=== PATIENT | female | born 1990 | race Caucasian/White ===

== ENCOUNTER 2019-04-15 18:04 | Emergency (ER) | payer OTHER ==
[2019-04-15 18:23] VITALS: TEMP 98.8
[2019-04-15 19:09] LABS: Basophils % (A) 1 %; Eosinophils # (A) 0.1 k/uL (0-0.7); Eosinophils % (A) 1 %; Lymphocytes # (A) 2.3 k/uL (1.0-4.8); Lymphocytes % (A) 30 %; MCHC 33.4 g/dL (31.0-37.0); MCV 89.8 fL (80.0-100.0); Mean Platelet Volume 7.3; Monocytes # (A) 0.4 k/uL (0-1.0); Monocytes % (A) 5 %; Neutrophils # (A) 4.7 k/uL (1.3-7.7); Neutrophils % (A) 61 %; Platelet Count 258 k/uL (150-450); RBC 4.34 m/uL (3.80-5.40); RDW 12.4 % (11.5-15.5); WBC 7.7 k/uL (3.8-10.6)
[2019-04-15 19:16] LABS: Appearance,Urine Clear (Clear); Bilirubin,Urine Negative (Negative); Blood,Urine Large (Negative); Color,Urine Light Yellow; Glucose,Urine (UA) Negative (Negative); Ketones,Urine Negative (Negative); Leukocyte Esterase,Urine Negative (Negative); Nitrite,Urine Negative (Negative); Protein,Urine Negative (Negative); RBC,Urine 1 /hpf (0-5); Specific Gravity,Urine 1.006 (1.001-1.035); Squamous Epithelial Cell,Urine 1 /hpf (0-4); Urobilinogen,Urine <2.0 mg/dL (<2.0); WBC,Urine 1 /hpf (0-5)
[2019-04-15 19:33] LABS: ALT 21 U/L (9-52); AST 22 U/L (14-36); African American GFR (CKD) >90 (>60 ml/min/1.73 sqM); Albumin 4.2 g/dL (3.5-5.0); Alkaline Phosphatase 56 U/L (38-126); Anion Gap 10 mmol/L; Blood Urea Nitrogen 14 mg/dL (7-17); Calcium 9.3 mg/dL (8.4-10.2); Carbon Dioxide 22 mmol/L (22-30); Chloride 108 mmol/L (98-107); Glucose 88 mg/dL (74-99); Sodium 140 mmol/L (137-145); Total Bilirubin 0.2 mg/dL (0.2-1.3); Total Protein 7.2 g/dL (6.3-8.2)
[2019-04-15 19:49] LABS: HCG,Quantitative Serum 12.3 mIU/mL
[2019-04-15 20:25] VITALS: BP 131/85; PULSE 87; RESP 18
--- NOTE | 2019-04-15 20:42 | US ---
EXAMINATION TYPE: OB < 14 wks transvag DATE OF EXAM: 04/15/2019 8:06 PM COMPARISON: NONE CLINICAL HISTORY: pain. Pain and bleeding x 1 day. . EXAM PERFORMED: Transvaginal (TV) and Transabdominal (TA) EXAM MEASUREMENTS: GESTATIONAL AGE / DATING Physician Established: Not yet established Dates by LMP: (4 weeks/1 day) EDC: 12/22/2019 Dates by First Scan: This is first scan Dates by Current Scan for: No gestational sac seen MATERNAL ANATOMY Uterus: Endo: 0.83 cm. No gestational sac seen at this time. Right Ovary: 3.6 x 2.3 x 2.2 cm. Anechoic areas seen. Largest: 0.7 x 0.8 x 1.0 cm. Left Ovary: 3.5 x 1.9 x 2.1 cm. Anechoic areas seen. Area of mixed echogenicity and peripheral vascularity seen measurin.5 x 1.8 x 1.4 cm. Post CDS / Adnexa: appear wnl Presence of free fluid: not seen Presence of corpus luteal cyst: Area of mixed echogenicity and peripheral vascularity seen left ovary measurin.5 x 1.8 x 1.4 cm. GESTATION / SURVEY IUP: No IUP seen at this time Date of LMP: 03/17/2019 Beta HcG (if available): Not detected IMPRESSION: 1. No gestational sac is identified. There is a mixed 1.8 cm structure within the left ovary which is indeterminate. May represent a corpus luteal cyst. Other etiologies including ectopic not excluded. Differential diagnosis would include normal too early to detect. Ectopic or missed also and the differential diagnosis. Correlate with beta hCG and serial ultrasound as clinically warranted. If there is a negative beta-hCG then consider hemorrhagic cyst or endometrioma. MTDD
--- NOTE | 2019-04-15 21:47 | ED ---
Female Urogenital HPI - General Chief complaint: Vaginal Bleeding Stated complaint: Vaginal Bleeding early Time Seen by Provider: 04/15/19 18:28 Source: patient Mode of arrival: ambulatory Limitations: no limitations - History of Present Illness Initial comments: 28-year-old female presents today for chief complaint of vaginal bleeding in . . Patient said her first positive test on Sunday. Patient discontinued control and one prior has not had a period since. Patient states she began bleeding around 11:30 this morning. She states has been progressively increasing. She states it began light. Patient states she feels like she has period cramping. Patient denies severe pain denies unilateral pain. Patient denies vomiting nausea, emesis melena hematochezia or diarrhea. Denies fevers. Denies vaginal discharge. Remaining review of system negative. Upon arrival patient appears well vital signs within acceptable limits. No signs of acute distress. - Related Data Home Medications Medication Instructions Recorded Confirmed Rtd-Rkhq-Enols Acid 1 cap PO DAILY 04/15/19 04/15/19 [-U Capsule (formulary)] Allergies Allergy/AdvReac Type Severity Reaction Status Date / Time No Known Allergies Allergy Unverified 04/15/19 19:01 Review of Systems ROS Statement: Those systems with pertinent positive or pertinent negative responses have been documented in the HPI. ROS Other: All systems not noted in ROS Statement are negative. Past Medical History Past Medical History: No Reported History History of Any Multi-Drug Resistant Organisms: None Reported Past Surgical History: No Surgical Hx Reported Past Psychological History: No Psychological Hx Reported Smoking Status: Never smoker Past Alcohol Use History: None Reported Past Drug Use History: None Reported General Exam - General Exam Comments Initial Comments: General: The patient is awake and alert, in no distress, and does not appear acutely ill. Eye: +3 mm pupils are equal, round and reactive to light, extra-ocular movements are intact. No nystagmus. There is normal conjunctiva bilaterally. No signs of icterus. Ears, nose, mouth and throat: There are moist mucous membranes and no oral lesions. Neck: The neck is supple, there is no tenderness or JVD. Cardiovascular: There is a regular rate and rhythm. No murmur, rub or gallop is appreciated. Respiratory: Lungs are clear to auscultation, respirations are non-labored, breath sounds are equal. No wheezes, stridor, rales, or rhonchi. Gastrointestinal: Soft, non-distended, non-tender abdomen without masses or organomegaly noted. There is no rebound or guarding present. No CVA tenderness. Bowel sounds are unremarkable. Pevlic: no adnexal tenderness, no cervical motion, os open, blood in vault, no heavy bleeding. no external lesions Musculoskeletal: Normal ROM, no tenderness. Strength 5/5. Sensation intact. Pulses equal bilaterally 2+. Neurological: A&O x 3. CN II-XII intact, There are no obvious motor or sensory deficits. Coordination appears grossly intact. Speech is normal. Skin: Skin is warm and dry and no rashes or lesions are noted. Psychiatric: Cooperative, appropriate mood & affect, normal judgment. Limitations: no limitations Course Vital Signs 04/15/19 04/15/19 04/15/19 18:19 20:25 22:38 Temperature 98.8 F 98.8 F Pulse Rate 78 87 87 Respiratory 16 18 18 Rate Blood Pressure 134/83 131/85 131/85 O2 Sat by Pulse 98 97 97 Oximetry Medical Decision Making - Medical Decision Making 28-year-old female presented today for chief complaint of vaginal bleeding and . First test was positive on Sunday. Patient discontinued control less than a month prior. Patient states she has crampy pain and moderate bleeding less than that of a period. Patient denies unilateral pain. No appreciable adnexal tenderness. Eyes open. Clinical on pelvic examination. Ultrasound revealed no evidence of IUP. There was a lesion of the left ovary noted. Most likely ddx given the appearance is corpus luteum cyst however cannot rule out ectopic. I feel this is clinically miscarriage in early given the patients hcg of 12. A+ blood type. Patient has no severe pain. VS stable. Evaluated in person by Dr. Torres (delay in evaluation due to code, once return patient promptly evaluated by attending). Patient stated she did not want to stay for OBGYN consultation. She states she has f/u on Sunday. Dr. Torres recommended f/u within 48 hours. Patient discharge appearing well. No changes in pain, amount of bleeding. - Lab Data Result diagrams: 04/15/19 18:50 04/15/19 18:50 Lab Results 07/30/19 07/30/19 07/30/19 Range/Units 18:50 18:50 18:50 WBC (3.8-10.6) k/uL RBC (3.80-5.40) m/uL Hgb (11.4-16.0) gm/dL Hct (34.0-46.0) % MCV (80.0-100.0) fL MCH (25.0-35.0) pg MCHC (31.0-37.0) g/dL RDW (11.5-15.5) % Plt Count (150-450) k/uL Neutrophils % % Lymphocytes % % Monocytes % % Eosinophils % % Basophils % % Neutrophils # (1.3-7.7) k/uL Lymphocytes # (1.0-4.8) k/uL Monocytes # (0-1.0) k/uL Eosinophils # (0-0.7) k/uL Basophils # (0-0.2) k/uL Sodium 140 (137-145) mmol/L Potassium 4.0 (3.5-5.1) mmol/L Chloride 108 H (98-107) mmol/L Carbon Dioxide 22 (22-30) mmol/L Anion Gap 10 mmol/L BUN 14 (7-17) mg/dL Creatinine 0.80 (0.52-1.04) mg/dL Est GFR (CKD-EPI)AfAm >90 (>60 ml/min/1.73 sqM) Est GFR (CKD-EPI)NonAf >90 (>60 ml/min/1.73 sqM) Glucose 88 (74-99) mg/dL Calcium 9.3 (8.4-10.2) mg/dL Total Bilirubin 0.2 (0.2-1.3) mg/dL AST 22 (14-36) U/L ALT 21 (9-52) U/L Alkaline Phosphatase 56 (38-126) U/L Total Protein 7.2 (6.3-8.2) g/dL Albumin 4.2 (3.5-5.0) g/dL HCG, Quant 12.3 mIU/mL Urine Color Light Yellow Urine Appearance Clear (Clear) Urine pH 5.0 (5.0-8.0) Ur Specific [place] 1.006 (1.001-1.035) Urine Protein Negative (Negative) Urine Glucose (UA) Negative (Negative) Urine Ketones Negative (Negative) Urine Blood Large H (Negative) Urine Nitrite Negative (Negative) Urine Bilirubin Negative (Negative) Urine Urobilinogen <2.0 (<2.0) mg/dL Ur Leukocyte Esterase Negative (Negative) Urine RBC 1 (0-5) /hpf Urine WBC 1 (0-5) /hpf Ur Squamous Epith Cells 1 (0-4) /hpf Urine HCG, Qual Not Detected (Not Detectd) Trichomonas Ag (Rapid) (Negative) Blood Type Blood Type Confirm Blood Type Recheck Antibody Screen Spec Expiration Date 04/15/19 04/15/19 04/15/19 Range/Units 18:50 18:50 18:55 WBC 7.7 (3.8-10.6) k/uL RBC 4.34 (3.80-5.40) m/uL Hgb 13.0 (11.4-16.0) gm/dL Hct 39.0 (34.0-46.0) % MCV 89.8 (80.0-100.0) fL MCH 30.0 (25.0-35.0) pg MCHC 33.4 (31.0-37.0) g/dL RDW 12.4 (11.5-15.5) % Plt Count 258 (150-450) k/uL Neutrophils % 61 % Lymphocytes % 30 % Monocytes % 5 % Eosinophils % 1 % Basophils % 1 % Neutrophils # 4.7 (1.3-7.7) k/uL Lymphocytes # 2.3 (1.0-4.8) k/uL Monocytes # 0.4 (0-1.0) k/uL Eosinophils # 0.1 (0-0.7) k/uL Basophils # 0.0 (0-0.2) k/uL Sodium (137-145) mmol/L Potassium (3.5-5.1) mmol/L Chloride (98-107) mmol/L Carbon Dioxide (22-30) mmol/L Anion Gap mmol/L BUN (7-17) mg/dL Creatinine (0.52-1.04) mg/dL Est GFR (CKD-EPI)AfAm (>60 ml/min/1.73 sqM) Est GFR (CKD-EPI)NonAf (>60 ml/min/1.73 sqM) Glucose (74-99) mg/dL Calcium (8.4-10.2) mg/dL Total Bilirubin (0.2-1.3) mg/dL AST (14-36) U/L ALT (9-52) U/L Alkaline Phosphatase (38-126) U/L Total Protein (6.3-8.2) g/dL Albumin (3.5-5.0) g/dL HCG, Quant mIU/mL Urine Color Urine Appearance (Clear) Urine pH (5.0-8.0) Ur Specific [place] (1.001-1.035) Urine Protein (Negative) Urine Glucose (UA) (Negative) Urine Ketones (Negative) Urine Blood (Negative) Urine Nitrite (Negative) Urine Bilirubin (Negative) Urine Urobilinogen (<2.0) mg/dL Ur Leukocyte Esterase (Negative) Urine RBC (0-5) /hpf Urine WBC (0-5) /hpf Ur Squamous Epith Cells (0-4) /hpf Urine HCG, Qual (Not Detectd) Trichomonas Ag (Rapid) (Negative) Blood Type A Positive Blood Type Confirm A Positive Blood Type Recheck CABO Indicated Antibody Screen NEGATIVE Spec Expiration Date 04/18/2019 - 234904/15/19 Range/Units Unknown WBC (3.8-10.6) k/uL RBC (3.80-5.40) m/uL Hgb (11.4-16.0) gm/dL Hct (34.0-46.0) % MCV (80.0-100.0) fL MCH (25.0-35.0) pg MCHC (31.0-37.0) g/dL RDW (11.5-15.5) % Plt Count (150-450) k/uL Neutrophils % % Lymphocytes % % Monocytes % % Eosinophils % % Basophils % % Neutrophils # (1.3-7.7) k/uL Lymphocytes # (1.0-4.8) k/uL Monocytes # (0-1.0) k/uL Eosinophils # (0-0.7) k/uL Basophils # (0-0.2) k/uL Sodium (137-145) mmol/L Potassium (3.5-5.1) mmol/L Chloride (98-107) mmol/L Carbon Dioxide (22-30) mmol/L Anion Gap mmol/L BUN (7-17) mg/dL Creatinine (0.52-1.04) mg/dL Est GFR (CKD-EPI)AfAm (>60 ml/min/1.73 sqM) Est GFR (CKD-EPI)NonAf (>60 ml/min/1.73 sqM) Glucose (74-99) mg/dL Calcium (8.4-10.2) mg/dL Total Bilirubin (0.2-1.3) mg/dL AST (14-36) U/L ALT (9-52) U/L Alkaline Phosphatase (38-126) U/L Total Protein (6.3-8.2) g/dL Albumin (3.5-5.0) g/dL HCG, Quant mIU/mL Urine Color Urine Appearance (Clear) Urine pH (5.0-8.0) Ur Specific [place] (1.001-1.035) Urine Protein (Negative) Urine Glucose (UA) (Negative) Urine Ketones (Negative) Urine Blood (Negative) Urine Nitrite (Negative) Urine Bilirubin (Negative) Urine Urobilinogen (<2.0) mg/dL Ur Leukocyte Esterase (Negative) Urine RBC (0-5) /hpf Urine WBC (0-5) /hpf Ur Squamous Epith Cells (0-4) /hpf Urine HCG, Qual (Not Detectd) Trichomonas Ag (Rapid) Negative (Negative) Blood Type Blood Type Confirm Blood Type Recheck Antibody Screen Spec Expiration Date Disposition Clinical Impression: Miscarriage, Vaginal bleeding before 22 weeks gestation Disposition: HOME SELF-CARE Condition: Good Instructions (If sedation given, give patient instructions): Miscarriage (ED) Additional Instructions: Please use medication as discussed. Please follow-up with Dr. Yanez in 48 hours. Please return to emergency room if the symptoms increase or worsen or for any other concerns. Is patient prescribed a controlled substance at d/c from ED?: No Referrals: None,Stated [Primary Care Provider] - 1-2 days Darryn Yanez DO [REFERRING] - 1-2 days Time of Disposition: 22:26
[2019-04-16 16:15] LABS: N. gonorrhoeae,PCR Negative (Neg,Equiv); Neisseria Source Urine
[2019-04-16 16:21] LABS: C. trachomatis,PCR Negative (Neg,Equiv); Chlamydia trachomatis Source Urine
== END 2019-04-15 22:41 | disposition home or self-care (01) ==
LOC: EC 18:04
DX: O03.9 Complete or unspecified spontaneous abortion without complication (principal); O99.89 Other specified diseases and conditions complicating pregnancy, childbirth and the puerperium; N83.9 Noninflammatory disorder of ovary, fallopian tube and broad ligament, unspecified; Z3A.00 Weeks of gestation of pregnancy not specified
CPT/HCPCS: 36415; 76801; 80053; 81001; 81025; 84702; 85025; 86850; 86900; 86901; 87070; 87205; 87491; 87591; 87808; 99284

== ENCOUNTER 2024-09-26 03:52 | Emergency (ER) | payer OTHER ==
[2024-09-26 03:56] VITALS: TEMP 98
--- NOTE | 2024-09-26 04:22 | ED ---
General Adult HPI - General Chief complaint: Abdominal Pain Stated complaint: Abd pain Time Seen by Provider: 09/26/24 04:10 Source: patient, RN notes reviewed, old records reviewed Mode of arrival: ambulatory - History of Present Illness Initial comments: Is a 33-year-old female who presents emergency department complaining of "gallbladder attack." States she has had numerous episodes of these in the past. Has been told she has gallbladder issues. They have been more frequent over the last year. States she has mid epigastric and right upper quadrant pain that radiates towards the back. Endorses nausea without any episodes of emesis. Symptoms started last night. Denies any chest pain, shortness of breath. Denies any fevers. Has a mild cough at this time. Denies any urinary complaints. States she is not . Presents for further evaluation. Denies diarrhea or constipation. - Related Data Home Medications Medication Instructions Recorded Confirmed Ayj-Bqkm-Bgftq Acid 1 cap PO DAILY 04/15/19 04/15/19 [-U Capsule (formulary)] Allergies Allergy/AdvReac Type Severity Reaction Status Date / Time No Known Allergies Allergy Verified 09/26/24 03:56 Review of Systems ROS Statement: Those systems with pertinent positive or pertinent negative responses have been documented in the HPI. Review of Systems: CONST: Denies fever EYES: Denies blurry vision ENT: Denies nasal congestion C/V: Denies Chest pain RESP: Denies shortness of breath GI: Endorses abdominal pain : Denies dysuria SKIN: Denies rash. MSK: Denies joint pain. NEURO: Denies headache ROS Other: All systems not noted in ROS Statement are negative. Past Medical History Past Medical History: No Reported History History of Any Multi-Drug Resistant Organisms: None Reported Past Surgical History: No Surgical Hx Reported Past Psychological History: No Psychological Hx Reported Smoking Status: Never smoker Past Alcohol Use History: None Reported Past Drug Use History: None Reported General Exam - General Exam Comments Initial Comments: General: Appears in mild distress secondary to abdominal discomfort. HEAD: Normal with no signs of head trauma. EYES: EOMI ENT: Hearing grossly intact, normal oropharynx. RESPIRATORY: Clear breath sounds bilaterally. No wheezes, rales, or rhonchi. C/V: Regular rate and rhythm. S1 and S2 auscultated, no edema, peripheral pulses 2+ and intact throughout ABD: Abdomen is soft, nondistended. Tender to palpation epigastric, right upper quadrant. No guarding or rebound tenderness. No peritoneal signs. EXT: Normal range of motion, no obvious deformity SKIN: No rashes or lesions observed on exposed skin. NEURO: Alert and oriented x 4. Course Vital Signs 09/26/24 09/26/24 03:53 06:53 Temperature 98 F Pulse Rate 81 79 Respiratory 18 16 Rate Blood Pressure 145/96 130/85 O2 Sat by Pulse 100 97 Oximetry Medical Decision Making - Medical Decision Making Was pt. sent in by a medical professional or institution (, PA, ASSISTANT FINANCIAL ACCOUNTANT, urgent care, hospital, or residential...) When possible be specific @ -No Did you speak to anyone other than the patient for history (EMS, parent, family, police, friend...)? What history was obtained from this source @ -No Did you review nursing and triage notes (agree or disagree)? Why? @ -I reviewed and agree with nursing and triage notes Were old charts reviewed (outside hosp., previous admission, EMS record, old EKG, old radiological studies, urgent care reports/EKG's, residential records)? Report findings @ -No old charts were reviewed Differential Diagnosis (chest pain, altered mental status, abdominal pain women, abdominal pain men, vaginal bleeding, weakness, fever, dyspnea, syncope, headache, dizziness, GI bleed, back pain, seizure, CVA, palpatations, mental health, musculoskeletal)? @ -Differential Abdominal Pain Women: Appendicitis, Cholecystitis, diverticulosis, ischemic bowel, pancreatitis, hepatitis, UTI, gastroenteritis, AAA, incarcerated hernia, bowel obstruction, constipation, inflammatory bowel, hepatitis, peptic ulcer disease, splenic infarction, perforated viscus, vulvitis, ovarian torsion, PID, kidney stone, placenta abruption, this is not meant to be an all-inclusive list EKG interpreted by me (3pts min.). @ -None done X-rays interpreted by me (1pt min.). @ -None done CT interpreted by me (1pt min.). @ -CT abdomen pelvis revealed revealed diverticulosis without diverticulitis. Patient has nodularity of the pancreas that could be normal versus abnormal. Recommend follow-up imaging. Patient has cholelithiasis without cholecystitis. U/S interpreted by me (1pt. min.). @ -None done What testing was considered but not performed or refused? (CT, X-rays, U/S, labs)? Why? @ -None What meds were considered but not given or refused? Why? @ -None Did you discuss the management of the patient with other professionals (professionals i.e. , PA, ASSISTANT FINANCIAL ACCOUNTANT, lab, RT, psych nurse, social welfare clerk, nc machinist, teacher, traffic officer, case advocate)? Give summary @ -No Was smoking cessation discussed for >3mins.? @ -No Was critical care preformed (if so, how long)? @ -No Were there social determinants of health that impacted care today? How? (Sandro elessness, low income, unemployed, alcoholism, drug addiction, transportation, low edu. Level, literacy, decrease access to med. care, correction, rehab)? @ -No Was there de-escalation of care discussed even if they declined (Discuss DNR or withdrawal of care, Hospice)? DNR status @ -No What co-morbidities impacted this encounter? (DM, HTN, Smoking, COPD, CAD, Cancer, CVA, ARF, Chemo, Hep., AIDS, mental health diagnosis, sleep apnea, morbid obesity)? @ -None Was patient admitted / discharged? Hospital course, mention meds given and route, prescriptions, significant lab abnormalities, going to OR and other pertinent info. @ -Patient presents with abdominal pain. History of gallbladder episodes in the past. States this is similar. We will obtain abdominal labs, as well as CT abdomen pelvis. Ultrasound is not available at this time at night. Vital signs within acceptable limits. Patient was in agreement this plan. She will be symptomatically treated with IV fluids, Zofran, Toradol, Protonix. Patient's laboratory studies returned revealed no obvious acute findings. CT imaging revealed cholelithiasis. Patient also has some nodularity of the pancreas which could be normal or abnormal. Recommended follow-up imaging. I discussed results with patient. She is feeling improved and symptoms have resolved. Diagnosis is cholelithiasis with biliary colic. Patient also has some nodularity of the pancreas and I recommended follow-up imaging the next 1 to 6 months and she can discuss with surgeon or GI specialist that she can follow-up with. She was in agreement this plan. Strict return precautions discussed. SHe given a starter pack of Zofran. I instructed the patient to follow up with their PCP in the next 1-3 days. I explained that the patient should return to the emergency department if they experience any worsening symptoms. Strict return precautions were discussed with the patient. The patient expressed understanding of these instructions. I answered all questions that the patient had. The patient was discharged home in good condition with their prescriptions and follow up information. Undiagnosed new problem with uncertain prognosis? @ -No Drug Therapy requiring intensive monitoring for toxicity (Heparin, Nitro, Insulin, Cardizem)? @ -No Were any procedures done? @ -No Diagnosis/symptom? @ -Cholelithiasis, biliary colic Acute, or Chronic, or Acute on Chronic? @ -Acute on chronic Uncomplicated (without systemic symptoms) or Complicated (systemic symptoms)? @ -Uncomplicated Side effects of treatment? @ -None Exacerbation, Progression, or Severe Exacerbation] @ -No Poses a threat to life or bodily function? @ -Unlikely at this time - Lab Data Result diagrams: 09/26/24 04:47 09/26/24 04:47 Lab Results 09/26/24 09/26/24 09/26/24 Range/Units 04:47 04:47 04:47 WBC 8.8 (3.8-10.6) k/uL RBC 4.29 (3.80-5.40) m/uL Hgb 13.0 (11.4-16.0) gm/dL Hct 39.3 (34.0-46.0) % MCV 91.6 (80.0-100.0) fL MCH 30.2 (25.0-35.0) pg MCHC 33.0 (31.0-37.0) g/dL RDW 11.6 (11.5-15.5) % Plt Count 260 (150-450) k/uL MPV 7.8 Neutrophils % 68 % Lymphocytes % 23 % Monocytes % 5 % Eosinophils % 2 % Basophils % 1 % Neutrophils # 6.0 (1.3-7.7) k/uL Lymphocytes # 2.0 (1.0-4.8) k/uL Monocytes # 0.4 (0-1.0) k/uL Eosinophils # 0.2 (0-0.7) k/uL Basophils # 0.0 (0-0.2) k/uL PT 9.8 L (10.0-12.5) sec INR 0.9 (<1.2) APTT 25.3 (22.0-30.0) sec Sodium 141 (137-145) mmol/L Potassium 4.1 (3.5-5.1) mmol/L Chloride 104 (98-107) mmol/L Carbon Dioxide 28 (22-30) mmol/L Anion Gap 9 mmol/L BUN 15 (7-17) mg/dL Creatinine 0.76 (0.52-1.04) mg/dL Est GFR (CKD-EPI)AfAm >90 (>60 ml/min/1.73 sqM) Est GFR (CKD-EPI)NonAf >90 (>60 ml/min/1.73 sqM) Glucose 105 H (74-99) mg/dL Plasma Lactic Acid [place] (0.7-2.0) mmol/L Calcium 9.8 (8.4-10.2) mg/dL Total Bilirubin 0.2 (0.2-1.3) mg/dL AST 20 (14-36) U/L ALT 21 (4-34) U/L Alkaline Phosphatase 62 (38-126) U/L Total Protein 7.7 (6.3-8.2) g/dL Albumin 4.8 (3.5-5.0) g/dL Amylase 60 (30-110) U/L Lipase 103 (23-300) U/L Urine Color Urine Appearance (Clear) Urine pH (5.0-8.0) Ur Specific [place] (1.001-1.035) Urine Protein (Negative) Urine Glucose (UA) (Negative) Urine Ketones (Negative) Urine Blood (Negative) Urine Nitrite (Negative) Urine Bilirubin (Negative) Urine Urobilinogen (<2.0) mg/dL Ur Leukocyte Esterase (Negative) Urine RBC (0-5) /hpf Urine WBC (0-5) /hpf Ur Squamous Epith Cells (0-4) /hpf Amorphous Sediment (None) /hpf Hyaline Casts (0-2) /lpf Urine Mucus (None) /hpf 09/26/24 09/26/24 Range/Units 04:47 04:50 WBC (3.8-10.6) k/uL RBC (3.80-5.40) m/uL Hgb (11.4-16.0) gm/dL Hct (34.0-46.0) % MCV (80.0-100.0) fL MCH (25.0-35.0) pg MCHC (31.0-37.0) g/dL RDW (11.5-15.5) % Plt Count (150-450) k/uL MPV Neutrophils % % Lymphocytes % % Monocytes % % Eosinophils % % Basophils % % Neutrophils # (1.3-7.7) k/uL Lymphocytes # (1.0-4.8) k/uL Monocytes # (0-1.0) k/uL Eosinophils # (0-0.7) k/uL Basophils # (0-0.2) k/uL PT (10.0-12.5) sec INR (<1.2) APTT (22.0-30.0) sec Sodium (137-145) mmol/L Potassium (3.5-5.1) mmol/L Chloride (98-107) mmol/L Carbon Dioxide (22-30) mmol/L Anion Gap mmol/L BUN (7-17) mg/dL Creatinine (0.52-1.04) mg/dL Est GFR (CKD-EPI)AfAm (>60 ml/min/1.73 sqM) Est GFR (CKD-EPI)NonAf (>60 ml/min/1.73 sqM) Glucose (74-99) mg/dL Plasma Lactic Acid [place] 0.7 (0.7-2.0) mmol/L Calcium (8.4-10.2) mg/dL Total Bilirubin (0.2-1.3) mg/dL AST (14-36) U/L ALT (4-34) U/L Alkaline Phosphatase (38-126) U/L Total Protein (6.3-8.2) g/dL Albumin (3.5-5.0) g/dL Amylase (30-110) U/L Lipase (23-300) U/L Urine Color Colorless Urine Appearance Clear (Clear) Urine pH 5.5 (5.0-8.0) Ur Specific [place] 1.015 (1.001-1.035) Urine Protein Negative (Negative) Urine Glucose (UA) Negative (Negative) Urine Ketones Negative (Negative) Urine Blood Negative (Negative) Urine Nitrite Negative (Negative) Urine Bilirubin Negative (Negative) Urine Urobilinogen <2.0 (<2.0) mg/dL Ur Leukocyte Esterase Trace H (Negative) Urine RBC <1 (0-5) /hpf Urine WBC 6 H (0-5) /hpf Ur Squamous Epith Cells 9 H (0-4) /hpf Amorphous Sediment Rare H (None) /hpf Hyaline Casts 1 (0-2) /lpf Urine Mucus Rare H (None) /hpf Disposition Clinical Impression: Biliary colic, Cholelithiases Disposition: HOME SELF-CARE Condition: Good Instructions (If sedation given, give patient instructions): Biliary Colic (ED) Additional Instructions: CT imaging revealed nodular configuration of the tail of the pancreas which could be normal. Could be abnormal. Radiology is uncertain. Recommend further evaluation and imaging in the next 6 months. Follow-up with your GI specialist or surgeon for further evaluation. Your diagnosis is biliary colic. Follow-up with surgeon or GI specialist for likely evaluation for outpatient removal of your gallbladder. Is patient prescribed a controlled substance at d/c from ED?: No Referrals: None,Stated [Primary Care Provider] - 1-2 days Coleen Rivera MD [STAFF PHYSICIAN] - 1-2 days Siena Maddox MD [STAFF PHYSICIAN] - 1-2 days Time of Disposition: 07:43
[2024-09-26] MEDS: ONDANSETRON 4 MG/2 ML VIAL IVP STA (04:41)
[2024-09-26] MEDS: KETOROLAC 15 MG/ML 1 ML VIAL IVP STA (04:41)
[2024-09-26] MEDS: PANTOPRAZOLE 40 MG/10 ML VIAL IVP STA (04:42)
[2024-09-26] MEDS: SODIUM CHLORIDE 0.9% 1,000 ML IV STA (04:42)
[2024-09-26 04:58] LABS: Basophils % (A) 1 %; Eosinophils # (A) 0.2 k/uL (0-0.7); Eosinophils % (A) 2 %; HCT 39.3 % (34.0-46.0); Lymphocytes % (A) 23 %; MCH 30.2 pg (25.0-35.0); MCV 91.6 fL (80.0-100.0); Mean Platelet Volume 7.8; Monocytes # (A) 0.4 k/uL (0-1.0); Monocytes % (A) 5 %; Neutrophils % (A) 68 %; Platelet Count 260 k/uL (150-450); RBC 4.29 m/uL (3.80-5.40); RDW 11.6 % (11.5-15.5); WBC 8.8 k/uL (3.8-10.6)
[2024-09-26 05:03] LABS: Amorphous Sediment,Urine Rare /hpf; Appearance,Urine Clear (Clear); Bilirubin,Urine Negative (Negative); Blood,Urine Negative (Negative); Color,Urine Colorless; Glucose,Urine (UA) Negative (Negative); Hyaline Casts,Urine 1 /lpf (0-2); Ketones,Urine Negative (Negative); Leukocyte Esterase,Urine Trace (Negative); Mucus,Urine Rare /hpf; Nitrite,Urine Negative (Negative); PH, Urine 5.5 (5.0-8.0); Protein,Urine Negative (Negative); RBC,Urine <1 /hpf (0-5); Specific Gravity,Urine 1.015 (1.001-1.035); Squamous Epithelial Cell,Urine 9 /hpf (0-4); Urobilinogen,Urine <2.0 mg/dL (<2.0); WBC,Urine 6 /hpf (0-5)
[2024-09-26 05:08] LABS: INR 0.9 (<1.2); Partial Thromboplastin Time 25.3 sec (22.0-30.0); Prothrombin Time 9.8 sec (10.0-12.5)
[2024-09-26 05:09] LABS: ALT 21 U/L (4-34); AST 20 U/L (14-36); African American GFR (CKD) >90 (>60 ml/min/1.73 sqM); Albumin 4.8 g/dL (3.5-5.0); Alkaline Phosphatase 62 U/L (38-126); Amylase 60 U/L (30-110); Anion Gap 9 mmol/L; Blood Urea Nitrogen 15 mg/dL (7-17); Calcium 9.8 mg/dL (8.4-10.2); Carbon Dioxide 28 mmol/L (22-30); Chloride 104 mmol/L (98-107); Glucose 105 mg/dL (74-99); Lipase 103 U/L (23-300); Non-African American GFR(CKD) >90 (>60 ml/min/1.73 sqM); Potassium 4.1 mmol/L (3.5-5.1); Sodium 141 mmol/L (137-145); Total Bilirubin 0.2 mg/dL (0.2-1.3); Total Protein 7.7 g/dL (6.3-8.2)
[2024-09-26 06:57] VITALS: RESP 16
--- NOTE | 2024-09-26 07:29 | CT ---
EXAMINATION TYPE: CT abdomen pelvis w con DATE OF EXAM: 09/26/2024 5:52 AM COMPARISON: None. CLINICAL INDICATION: Female, 33 years old with history of abdominal pain. RUQ/epigastric, RUQ pain pt has hx of gallstones., TECHNIQUE: Contiguous axial scanning of the abdomen and pelvis following administration of 100 ml Iso raul 300 IV contrast. Delayed images through the kidneys and coronal/sagittal reconstructions perform ed. CT DLP: 966 mGycm, Automated exposure control for dose reduction was used. FINDINGS: The heart is upper limits of normal in size without pericardial effusion. Lung bases clear without pl eural effusion. There is a small to moderate-sized hernia. The liver is enlarged at 19.9 cm. Portal venous system is patent. No biliary ductal dilatation. Numerous small stones layering within the gallbladder. No abnormal gallbladder distention or surround ing inflammation. Small fatty umbilical hernia measuring 1.5 cm wide. Some crowding in the region of the left adrenal gland. On coronal images, the left adrenal gland appe ars satisfactory. Right adrenal gland, kidneys, and spleen otherwise appear within normal limits. Sug gestion of some possible venous collaterals at the hilum of the spleen. The splenic vein appears kowalski nt. 1.6 cm nodular configuration to the tail of the pancreas, axial image 19. Follow-up can be considered to exclude a small solid lesion here. No dilated small bowel, free fluid, or free air. No mesenteric or retroperitoneal lymphadenopathy. Normal appendix. [id number] stool. Some minimal diverticulosis of the junction of the descendin g and sigmoid colon. No pericolonic inflammatory change. Bladder partially distended. Uterus anteverted. Prominent follicular change in both ovaries with lissy nant follicles or functional cysts measuring up to 2.0 cm. Small pelvic phleboliths. No abnormal flui d collection in the pelvis or pelvic lymphadenopathy. Bones: No osseous destructive process. IMPRESSION: 1. [id number] STOOL. MINIMAL PROXIMAL SIGMOID DIVERTICULOSIS WITHOUT ACUTE DIVERTICULITIS. 2. SMALL TO MODERATE SIZE HIATAL HERNIA. 3. CHOLELITHIASIS WITHOUT CT EVIDENCE FOR ACUTE CHOLECYSTITIS. 4. NODULAR CONFIGURATION AT THE TAIL OF THE PANCREAS MEASURING 1.6 CM, POSSIBLE NORMAL PANCREATIC TIS DIAMOND. RECOMMEND 6 MONTH FOLLOW-UP PANCREAS MRI TO REASSESS THIS REGION. 5. HEPATOMEGALY AT 19.9 CM. [facility], , 09/26/2024 7:26 AM
[2024-09-26] MEDS: ONDANSETRON 4 MG ODT STARTER PACK 2 TAB BTL PO STA (07:57)
[2024-09-26 08:00] VITALS: BP 125/84; PULSE 80
== END 2024-09-26 08:05 | disposition home or self-care (01) ==
LOC: EC 03:52
DX: K80.20 Calculus of gallbladder without cholecystitis without obstruction (principal); K80.40 Calculus of bile duct with cholecystitis, unspecified, without obstruction
CPT/HCPCS: 36415; 80053; 82150; 83605; 83690; 85025; 85610; 85730; 81001; 74177; 99284; 96374; 96375; 96361; J1885; S0119; Q9967; J2470